=== PATIENT | male | born 1965 | race Caucasian/White ===

== ENCOUNTER → 2018-02-19 10:46 | Outpatient (CLI) | payer OTHER, MEDICARE, SELFPAY ==
[2018-02-19 13:31] LABS: Vitamin B12 330 pg/mL (239-931)
[2018-02-19 14:20] LABS: Vitamin D 25 Hydroxy (D3) 31.2 ng/mL (30.0-100.0)
== END ==
PROVIDERS: PCP Physician Assistant; Visit Provider Physician Assistant
DX: E53.8 Deficiency of other specified B group vitamins (principal); E55.9 Vitamin D deficiency, unspecified; K94.19 Other complications of enterostomy; M85.89 Other specified disorders of bone density and structure, multiple sites; Z87.19 Personal history of other diseases of the digestive system
CPT/HCPCS: 36415; 82306; 82607

== ENCOUNTER → 2018-10-21 11:40 | Outpatient (CLI) | payer OTHER, MEDICARE, SELFPAY ==
[2018-10-21 12:11] LABS: Add Manual Diff / Slide Review NO; Basophils Absolute Auto 100 /uL (0-100); Basophils Percent Auto 1.3 % (0-2); Eosinophils Absolute Auto 600 /uL (0-450); Eosinophils Percent Auto 10.2 % (2-4); Hematocrit 44.9 % (41-53); Lymphocytes Absolute Auto 1300 /uL (1100-4500); Lymphocytes Percent Auto 23.3 % (25-40); Mean Corpuscular HGB Conc 33.4 % (30-36); Mean Corpuscular Hemoglobin 32.3 PG (26-34); Mean Corpuscular Volume 96.6 fL (80-100); Monocytes Absolute Auto 600 /uL (0-900); Monocytes Percent Auto 11.1 % (3-14); Neutrophils Absolute Auto 3000 /uL (1500-7000); Neutrophils Percent Auto 54.1 % (50-75); Platelet Count 228 X10^3/uL (150-400); Red Blood Cell Count 4.64 X10^6/uL (4.5-5.9); White Blood Cell Count 5.6 X10^3/uL (4.5-11.0)
[2018-10-21 12:44] LABS: Alanine Aminotransferase 33 IU/L (21-72); Albumin 4.2 g/dL (3.5-5.0); Albumin Globulin Ratio 1.3 (1.0-2.8); Alkaline Phosphatase 67 U/L (38-126); Aspartate Aminotransferase 34 IU/L (17-59); BUN Creatinine Ratio 13.6 (6-22); Bilirubin Total 3.4 mg/dL (0.2-1.3); Blood Urea Nitrogen 15 mg/dL (9-20); Calcium 9.4 mg/dL (8.4-10.2); Carbon Dioxide 28 mmol/L (22-32); Chloride 105 mmol/L (98-107); Cholesterol 162 mg/dL (140-199); Estimated Glomerular Filt Rate > 60.0 mL/min (>60); Globulin 3.2 g/dL (1.7-4.1); Glucose 89 mg/dL (70-100); HDL Cholesterol 60 mg/dL (40-60); HEMOLYSIS < 15 (0-50); LDL Cholesterol Calculated 85 mg/dL (<100); Potassium 3.9 mmol/L (3.4-5.1); Sodium 141 mmol/L (137-145); Total Protein 7.4 g/dL (6.3-8.2); Triglycerides 86 mg/dL (35-150)
[2018-10-21 13:12] LABS: Prostate Specific Antigen Scrn 0.595 ng/mL (0.1-4.0)
[2018-10-21 13:30] LABS: Vitamin B12 262 pg/mL (239-931)
[2018-10-21 14:16] LABS: Thyroid Stimulating Hormone 1.37 uIU/mL (0.47-4.68)
== END ==
PROVIDERS: PCP Physician Assistant; Visit Provider Physician Assistant
DX: E53.8 Deficiency of other specified B group vitamins (principal); E55.9 Vitamin D deficiency, unspecified; K94.19 Other complications of enterostomy; M85.89 Other specified disorders of bone density and structure, multiple sites; R63.4 Abnormal weight loss; Z13.220 Encounter for screening for lipoid disorders; Z13.6 Encounter for screening for cardiovascular disorders; Z87.19 Personal history of other diseases of the digestive system; Z12.5 Encounter for screening for malignant neoplasm of prostate
CPT/HCPCS: 36415; 80053; 80061; 82306; 82607; 84443; 85025; G0103

== ENCOUNTER 2018-10-29 09:45 | Outpatient (RCR) | payer OTHER, MEDICARE, SELFPAY ==
--- NOTE | 2018-09-30 17:36 | PT.OIE ---
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) Ulcerative colitis (Chronic 1982) Actinic keratosis (Resolved ~04/2017) Colorectal cancer (Resolved 2011) Kidney stones (Resolved 2007) Past Surgical History (Last Reviewed 08/15/18 @ 11:40 by Shiloh Mills MD) History of partial colectomy (Resolved 1997) History of resection of small bowel (Resolved 11/2014) Hx of hernia repair (Resolved 03/2013) Hx of total colectomy (Resolved 09/2011) SBO (small bowel obstruction) (Resolved 10/2011) Provider Visit Care Team Role Provider Type Zeynep Yadav PA-C Primary Care Provider Advanced Contracting Analyst Specialty: Medical Address: [address] [place] [address], [id number] Email: [email or web address] Shiloh Mills MD Attending Provider Physician Specialty: Internal Medicine Address: [address] [place] [address], [id number] Email: Physical Therapy Initial Evaluation PT-OP-A Visit Information Start: 09/30/18 16:57 Freq: Status: Active Protocol: Document 09/30/18 14:30 DCW (Rec: 09/30/18 17:34 [facility] [id number]) Out-Patient Physical Therapy Visit Information Visit Information Visit Type Initial Evaluation Visit Start Time 14:30 Visit Stop Time 15:15 Total Visit Minutes 45 Visit Number 1 Number of MOVIE MACHINE OPERATOR Visits 0 Evaluation Information Evaluation Date 09/30/18 PT-OP-B Current Condition Start: 09/30/18 16:57 Freq: Status: Active Protocol: Document 09/30/18 14:30 DCW (Rec: 09/30/18 17:34 [facility] [id number]) Current Condition History of Current Condition Onset Date 6 weeks Current Complaints Low back pain/stiffness History of Current Condition Pt is a 52 year-old male presenting 6 weeks s/p episode of severe low back pain and spasm. Pt reports that 5 years ago, he underwent a similar episode of lumbar pain, and an MRI revealed 3 slipped discs. At that time, pt had injections and a large dose on NSAIDs, which eventually helped calm things down. Pt reports that over the past ~ two months, he began having some slight increase in low back pain again, and then suddenly 6 weeks ago, had another episode of 10/10 pain, which was so bad pt had to crawl on the floor to get himself to the bathroom. Pt again has taken NSAIDs, which helped him get over the worst of the pain, and reports he now averages about a 3/10, with bad days only being a 4 /10. Pt would now like to focus on learning how to stretch and strengthen himself to limit the possibility of another episode occurring again. Complicating pt's recovery course, however, is a prolapsed Ileostomy. Pt reports that the first time his back pain occurred five years ago, he went to Physical Therapy, and during his first session, was trying to work on core strengthening, and woke up the next day with his prolapsed Ileostomy. Pt notes he never returned to that physical therapy clinic, and he has now undergone two seperate surgeries in an attempt to fix the prolapse, unfortunately both times, the prolapse returned after ~6 weeks. Due to this, pt is very limited in his core and back mobility, and is hesitant to do any strong abdominal contraction. Prior Treatments and Tests MRI: Per pt, MRI in 2013 showed 3 slipped lumbar discs Ileostomy, and then two attempted surgical repairs of an Ileostomy prolapse Treatment Goals Patient/Caregiver Goals Pt's goal is to avoid getting another episode of severe back pain. Prior Functional Status Baseline Function- ADL's Independent Baseline Function- Mobility Independent Current Functional Impairments (Reported) Functional Limitations- Other Pt function now is back to his normal, which he admits isn' t really very much. Pt notes he does not do any strenuous activity Personal Factors Other Personal Factors That May Effect Crohn's disease s/p Ileostomy Therapy/Recovery (prolapsed), Depression, Osteopenia, Asthma PT-OP-C Subjective Start: 09/30/18 16:57 Freq: Status: Active Protocol: Document 09/30/18 14:30 DCW (Rec: 09/30/18 17:34 DCW [id number]) OP-PT Subjective Patient Comments Patient Comments I have very strict limits on what I'm allowed to lift and how I can move my core because of my ileostomy. Patient Reported Progress Improving Patient Questionnaires Oswestry Low Back Index Oswestry Score 45/50 = 90% Oswestry Impairment 80 to 99% Impaired (Score 80- 99) Other Questionnaire Name and Score Pt reports he filled out his Oswestry questionnaire based on how he felt during his severe episode, not his current function OP-PT Pain Assessment Pain Assessment Grid Paper Pain Assessment Grid Completed Yes Location Lower Back Intensity 9 Scale Used Numeric (1 - 10) Description Sharp Shooting Spasm Stabbing Throbbing Comments Pain Comments Pt reports he filled out his pain assessment grid based on how he felt during his severe episode, not his current level of pain PT-OP-F Manual Assessment Start: 09/30/18 16:57 Freq: Status: Active Protocol: Document 09/30/18 14:30 DCW (Rec: 09/30/18 17:34 DCW [id number]) Manual Assessments Soft Tissue Assessment Soft Tissue Mobility Assessment Left QL: Moderate-severe tone and tenderness 2/4: pain with wincing along left PT-OP-J Posture/Palpation/Skin Start: 09/30/18 16:57 Freq: Status: Active Protocol: Document 09/30/18 14:30 DCW (Rec: 09/30/18 17:34 DCW [id number]) Palpation Assessment Location QL Palpation Location Left QL Palpation Findings Spasm Muscle Guarding Tenderness PT-OP-K Range of Motion Start: 09/30/18 17:34 Freq: Status: Active Protocol: Document 09/30/18 14:30 DCW (Rec: 09/30/18 17:36 DCW [id number]) Lumbar Spine Range of Motion Lumbar Spine Active Degrees Comments Pt very limited in lumbar ROM secondary to Ileostomy. Pt performs all bending down with his hips and legs, keeping his spine completely straight. PT-OP-L Special Tests Start: 09/30/18 16:57 Freq: Status: Active Protocol: Document 09/30/18 14:30 DCW (Rec: 09/30/18 17:34 DCW [id number]) Special Tests Lumbar Spine Special Tests Compression Test Results Negative Slump Test Results Negative CONSTANCE Test Results Negative Straight Leg Raise Test Results HS tightness at 40? Comments PROM only, AROM not performed Standing Flexion Test Results Unable to perform 2? to Ileostomy Manual Traction Test Results Improved pain PT-OP-M Strength Start: 09/30/18 16:57 Freq: Status: Active Protocol: Document 09/30/18 14:30 DCW (Rec: 09/30/18 17:34 DCW [id number]) Trunk Strength Trunk Manual Muscle Testing Testing Position Supine Core Stabilization Pt able to contract TrA gently , not tested further to prevent increased internal pressure due to Ileostomy prolapse PT-OP-Q Treatments Start: 09/30/18 16:57 Freq: Status: Active Protocol: Document 09/30/18 14:30 DCW (Rec: 09/30/18 17:34 DCW [id number]) Therapeutic Exercises Supine Exercises PPT /c core contraction Supine Exercise Name PPT /c gentle core contraction Sitting Exercises Seated Marching Sitting Exercise Name Seated Marching /c gentle core contraction Side bilateral Seated lumbar flexion Sitting Exercise Name Lumbar fwd flexion Lateral trunk flexion Sitting Exercise Name Lateral trunk flexion Side left Comments focus on L QL stretch PT-OP-T Assessment and Plan Start: 09/30/18 16:57 Freq: Status: Active Protocol: Document 09/30/18 14:30 DCW (Rec: 09/30/18 17:34 DCW [id number]) Physical Therapy Assessment Rehab Potential Rehabilitation Potential Good Evaluation Complexity Number of Personal Factors/Comorbidities 1-2 Number of Body Systems Impaired 3 Clinical Presentation at Evaluation Unstable Impairments Impairments Pain ROM Soft Tissue Mobility Strength Tone Goals Three Impairment Pt unable to perform proper core contraction d/t Ileostomy prolapse Short Term Goal (STG) Pt to demonstrate understanding of ability to gently contract core and brace low back without increasing internal core pressure and worsening prolapse STG Duration 10/31/18 Two Impairment L QL spasm causes low back pain and stiffness Short Term Goal (STG) Pt to report pain >3/10 over two week span STG Duration 10/31/18 Director Peoplesoft Goal (LTG) Pt QL to mild tone with tenderness to palpation 03/29: Complaint of pain LTG Duration 12/01/18 One Impairment Pt does not have an appropriate home exercise program Short Term Goal (STG) Pt to be independent and compliant with an appropriate HEP STG Duration 10/31/18 Assessment Summary Assessment Pt presents with a history of occasional severe low back pain, secondary to likely disc herniation, muscle tone, and decreased core strength. Pt is unable to properly contract his core musculature due to his previous history of a prolapsed Ileostomy, for which surgical repair has failed twice. Ileostomy prevents pt from engaging his core, attempting to flex or extend his lumbar spine, or perform any high-level physical activity. These limitations will obviously influence pt's ability to participate in parts of a normal PT plan for lumbar dysfunction, however pt should benefit from manual traction, STM, pain-control modalities, and gentle core strengthening and stability. Physical Therapy Plan Frequency and Duration Frequency of Treatment 2x/Week Duration of Treatment 10 weeks Plan of Care Start Date 09/30/18 Plan of Care End Date 12/09/18 Therapeutic Interventions Therapeutic Interventions Home Exercise Program Joint Mobilizations Manual Therapy Patient/Caregiver Education Self-Care/Home Management Soft Tissue Mobilization Therapeutic Activities Therapeutic Exercises Modalities Cold Pack/Ice Massage Electric Stimulation Hot Packs Ultrasound Next Visit Focus/Plan Next Note Type Treatment Note Next Visit Plan Lumbar STM, gentle core strengthening, Manual traction
--- NOTE | 2018-09-30 17:36 | PT.OPPOC ---
Current Diagnoses Low back pain (09/30/18) Provider Visit Care Team Role Provider Type Zeynep Yadav PA-C Primary Care Provider Advanced Crewman Main Battle Tank Specialty: Medical Address: [address] [place] [address], [address] Email: [email or web address] Shiloh Mills MD Attending Provider Physician Specialty: Internal Medicine Address: [address] [place] [address], [address] Email: Plan Of Care PT-OP-T Assessment and Plan Start: 09/30/18 16:57 Freq: Status: Active Protocol: Document 09/30/18 14:30 DCW (Rec: 09/30/18 17:34 DCW [id number]) Physical Therapy Assessment Rehab Potential Rehabilitation Potential Good Evaluation Complexity Number of Personal Factors/Comorbidities 1-2 Number of Body Systems Impaired 3 Clinical Presentation at Evaluation Unstable Impairments Impairments Pain ROM Soft Tissue Mobility Strength Tone Goals Three Impairment Pt unable to perform proper core contraction d/t Ileostomy prolapse Short Term Goal (STG) Pt to demonstrate understanding of ability to gently contract core and brace low back without increasing internal core pressure and worsening prolapse STG Duration 10/31/18 Two Impairment L QL spasm causes low back pain and stiffness Short Term Goal (STG) Pt to report pain >3/10 over two week span STG Duration 10/31/18 Retail Service Specialist Goal (LTG) Pt QL to mild tone with tenderness to palpation 1/4: Complaint of pain LTG Duration 12/01/18 One Impairment Pt does not have an appropriate home exercise program Short Term Goal (STG) Pt to be independent and compliant with an appropriate HEP STG Duration 10/31/18 Assessment Summary Assessment Pt presents with a history of occasional severe low back pain, secondary to likely disc herniation, muscle tone, and decreased core strength. Pt is unable to properly contract his core musculature due to his previous history of a prolapsed Ileostomy, for which surgical repair has failed twice. Ileostomy prevents pt from engaging his core, attempting to flex or extend his lumbar spine, or perform any high-level physical activity. These limitations will obviously influence pt's ability to participate in parts of a normal PT plan for lumbar dysfunction, however pt should benefit from manual traction, STM, pain-control modalities, and gentle core strengthening and stability. Physical Therapy Plan Frequency and Duration Frequency of Treatment 2x/Week Duration of Treatment 10 weeks Plan of Care Start Date 09/30/18 Plan of Care End Date 12/09/18 Therapeutic Interventions Therapeutic Interventions Home Exercise Program Joint Mobilizations Manual Therapy Patient/Caregiver Education Self-Care/Home Management Soft Tissue Mobilization Therapeutic Activities Therapeutic Exercises Modalities Cold Pack/Ice Massage Electric Stimulation Hot Packs Ultrasound Next Visit Focus/Plan Next Note Type Treatment Note Next Visit Plan Lumbar STM, gentle core strengthening, Manual traction Plan of Care Dates Plan of Care Start Date 09/30/18 Plan of Care End Date 12/09/18 Please Sign and Return: I have reviewed this Plan of Care and certify that the skilled therapy services above are required to meet the patient?s needs. Physician Signature Date Printed Name and Credentials Clinical Instructor Signature Printed Name and Credentials
--- NOTE | 2018-10-03 15:13 | PT.OTN ---
Current Diagnoses Low back pain (10/03/18) Physical Therapy Treatment Note PT-OP-A Visit Information Start: 09/30/18 16:57 Freq: Status: Active Protocol: Document 10/03/18 14:30 DCW (Rec: 10/03/18 15:13 DCW [id number]) Out-Patient Physical Therapy Visit Information Visit Information Visit Type Treatment Note Visit Start Time 14:30 Visit Stop Time 15:15 Total Visit Minutes 45 Visit Number 2 Number of BODY PRESSER Visits 0 Evaluation Information Evaluation Date 09/30/18 PT-OP-B Current Condition Start: 09/30/18 16:57 Freq: Status: Active Protocol: Document 09/30/18 14:30 DCW (Rec: 09/30/18 17:34 DCW [id number]) Current Condition History of Current Condition Onset Date 6 weeks Current Complaints Low back pain/stiffness History of Current Condition Pt is a 52 year-old male presenting 6 weeks s/p episode of severe low back pain and spasm. Pt reports that 5 years ago, he underwent a similar episode of lumbar pain, and an MRI revealed 3 slipped discs. At that time, pt had injections and a large dose on NSAIDs, which eventually helped calm things down. Pt reports that over the past ~ two months, he began having some slight increase in low back pain again, and then suddenly 6 weeks ago, had another episode of 10/10 pain, which was so bad pt had to crawl on the floor to get himself to the bathroom. Pt again has taken NSAIDs, which helped him get over the worst of the pain, and reports he now averages about a 3/10, with bad days only being a 4 /10. Pt would now like to focus on learning how to stretch and strengthen himself to limit the possibility of another episode occurring again. Complicating pt's recovery course, however, is a prolapsed Ileostomy. Pt reports that the first time his back pain occurred five years ago, he went to Physical Therapy, and during his first session, was trying to work on core strengthening, and woke up the next day with his prolapsed Ileostomy. Pt notes he never returned to that physical therapy clinic, and he has now undergone two seperate surgeries in an attempt to fix the prolapse, unfortunately both times, the prolapse returned after ~6 weeks. Due to this, pt is very limited in his core and back mobility, and is hesitant to do any strong abdominal contraction. Prior Treatments and Tests MRI: Per pt, MRI in 2013 showed 3 slipped lumbar discs Ileostomy, and then two attempted surgical repairs of an Ileostomy prolapse Treatment Goals Patient/Caregiver Goals Pt's goal is to avoid getting another episode of severe back pain. Prior Functional Status Baseline Function- ADL's Independent Baseline Function- Mobility Independent Current Functional Impairments (Reported) Functional Limitations- Other Pt function now is back to his normal, which he admits isn' t really very much. Pt notes he does not do any strenuous activity Personal Factors Other Personal Factors That May Effect Crohn's disease s/p Ileostomy Therapy/Recovery (prolapsed), Depression, Osteopenia, Asthma PT-OP-C Subjective Start: 09/30/18 16:57 Freq: Status: Active Protocol: Document 10/03/18 14:30 DCW (Rec: 10/03/18 15:13 DCW [id number]) OP-PT Subjective Patient Comments Patient Comments I felt pretty good after last time. Nothing was too hard. I 'm having trouble remembering my exercises, though. PT-OP-F Manual Assessment Start: 09/30/18 16:57 Freq: Status: Active Protocol: Document 09/30/18 14:30 DCW (Rec: 09/30/18 17:34 DCW [id number]) Manual Assessments Soft Tissue Assessment Soft Tissue Mobility Assessment Left QL: Moderate-severe tone and tenderness 2/4: pain with wincing along left PT-OP-J Posture/Palpation/Skin Start: 09/30/18 16:57 Freq: Status: Active Protocol: Document 09/30/18 14:30 DCW (Rec: 09/30/18 17:34 DCW [id number]) Palpation Assessment Location QL Palpation Location Left QL Palpation Findings Spasm Muscle Guarding Tenderness PT-OP-K Range of Motion Start: 09/30/18 17:34 Freq: Status: Active Protocol: Document 09/30/18 14:30 DCW (Rec: 09/30/18 17:36 DCW [id number]) Lumbar Spine Range of Motion Lumbar Spine Active Degrees Comments Pt very limited in lumbar ROM secondary to Ileostomy. Pt performs all bending down with his hips and legs, keeping his spine completely straight. PT-OP-L Special Tests Start: 09/30/18 16:57 Freq: Status: Active Protocol: Document 09/30/18 14:30 DCW (Rec: 09/30/18 17:34 DCW [id number]) Special Tests Lumbar Spine Special Tests Compression Test Results Negative Slump Test Results Negative CONSTANCE Test Results Negative Straight Leg Raise Test Results HS tightness at 40? Comments PROM only, AROM not performed Standing Flexion Test Results Unable to perform 2? to Ileostomy Manual Traction Test Results Improved pain PT-OP-M Strength Start: 09/30/18 16:57 Freq: Status: Active Protocol: Document 09/30/18 14:30 DCW (Rec: 09/30/18 17:34 DCW [id number]) Trunk Strength Trunk Manual Muscle Testing Testing Position Supine Core Stabilization Pt able to contract TrA gently , not tested further to prevent increased internal pressure due to Ileostomy prolapse PT-OP-Q Treatments Start: 09/30/18 16:57 Freq: Status: Active Protocol: Document 10/03/18 14:30 DCW (Rec: 10/03/18 15:13 DCW [id number]) Gym Equipment Therapeutic Ball Trunk Rotation Exercise Details Trunk Rotation vs T-band resistance Ball Size/Color Green - 65 cm Lv 1 T-band Body Position Sitting Hip/knee flexion vs T-band resistance Exercise Details Hip/knee flexion vs T-band resistance - feet on T-ball Ball Size/Color Red - 55 cm Lv 3 T-band Body Position Supine Lower Trunk Rotation Exercise Details Trunk Rotation, legs on T-ball Ball Size/Color Red - 55 cm Body Position Supine Therapeutic Exercises Supine Exercises PPT /c SLR Supine Exercise Name PPT /c alternating SLR PPT /c Marching Supine Exercise Name PPT /c Marching Manual Therapy Treatment Soft Tissue Mobilization Paraspinals Body Location L Paraspinals Mobilization Type Strumming Sustained Pressure Intensity/Depth Moderate Body Position Sidelying QL Body Location L QL Mobilization Type Strumming Sustained Pressure Intensity/Depth Moderate Body Position Sidelying Manual Traction Lumbar Details Short-axis on B LEs /c strap Body Position Hooklying PT-OP-T Assessment and Plan Start: 09/30/18 16:57 Freq: Status: Active Protocol: Document 10/03/18 14:30 DCW (Rec: 10/03/18 15:13 DCW [id number]) Physical Therapy Assessment Impairments Impairments Pain ROM Soft Tissue Mobility Strength Tone Goals Three Impairment Pt unable to perform proper core contraction d/t Ileostomy prolapse Short Term Goal (STG) Pt to demonstrate understanding of ability to gently contract core and brace low back without increasing internal core pressure and worsening prolapse STG Duration 10/31/18 Two Impairment L QL spasm causes low back pain and stiffness Short Term Goal (STG) Pt to report pain >3/10 over two week span STG Duration 10/31/18 Marketing Programs Specialist Goal (LTG) Pt QL to mild tone with tenderness to palpation 03/29: Complaint of pain LTG Duration 12/01/18 One Impairment Pt does not have an appropriate home exercise program Short Term Goal (STG) Pt to be independent and compliant with an appropriate HEP STG Duration 10/31/18 Assessment Summary Assessment Pt felt great relief with STM and manual traction, and tolerated TherEx very well with no complaints of too much abdominal stress on his Ileostomy. Physical Therapy Plan Frequency and Duration Frequency of Treatment 2x/Week Duration of Treatment 10 weeks Plan of Care Start Date 09/30/18 Plan of Care End Date 12/09/18 Therapeutic Interventions Therapeutic Interventions Home Exercise Program Joint Mobilizations Manual Therapy Patient/Caregiver Education Self-Care/Home Management Soft Tissue Mobilization Therapeutic Activities Therapeutic Exercises Modalities Cold Pack/Ice Massage Electric Stimulation Hot Packs Ultrasound Next Visit Focus/Plan Next Note Type Treatment Note Next Visit Plan Lumbar STM, gentle core strengthening, Manual traction
--- NOTE | 2018-10-29 10:40 | PT.OTN ---
Current Diagnoses Low back pain (10/29/18) Physical Therapy Treatment Note PT-OP-A Visit Information Start: 09/30/18 16:57 Freq: Status: Active Protocol: Document 10/29/18 09:55 DCW (Rec: 10/29/18 10:40 DCW [id number]) Out-Patient Physical Therapy Visit Information Visit Information Visit Type Treatment Note Visit Start Time 09:55 Visit Stop Time 10:30 Total Visit Minutes 35 Visit Number 3 Number of SLAGGER Visits 0 Evaluation Information Evaluation Date 09/30/18 PT-OP-B Current Condition Start: 09/30/18 16:57 Freq: Status: Active Protocol: Document 09/30/18 14:30 DCW (Rec: 09/30/18 17:34 DCW [id number]) Current Condition History of Current Condition Onset Date 6 weeks Current Complaints Low back pain/stiffness History of Current Condition Pt is a 52 year-old male presenting 6 weeks s/p episode of severe low back pain and spasm. Pt reports that 5 years ago, he underwent a similar episode of lumbar pain, and an MRI revealed 3 slipped discs. At that time, pt had injections and a large dose on NSAIDs, which eventually helped calm things down. Pt reports that over the past ~ two months, he began having some slight increase in low back pain again, and then suddenly 6 weeks ago, had another episode of 10/10 pain, which was so bad pt had to crawl on the floor to get himself to the bathroom. Pt again has taken NSAIDs, which helped him get over the worst of the pain, and reports he now averages about a 3/10, with bad days only being a 4 /10. Pt would now like to focus on learning how to stretch and strengthen himself to limit the possibility of another episode occurring again. Complicating pt's recovery course, however, is a prolapsed Ileostomy. Pt reports that the first time his back pain occurred five years ago, he went to Physical Therapy, and during his first session, was trying to work on core strengthening, and woke up the next day with his prolapsed Ileostomy. Pt notes he never returned to that physical therapy clinic, and he has now undergone two seperate surgeries in an attempt to fix the prolapse, unfortunately both times, the prolapse returned after ~6 weeks. Due to this, pt is very limited in his core and back mobility, and is hesitant to do any strong abdominal contraction. Prior Treatments and Tests MRI: Per pt, MRI in 2013 showed 3 slipped lumbar discs Ileostomy, and then two attempted surgical repairs of an Ileostomy prolapse Treatment Goals Patient/Caregiver Goals Pt's goal is to avoid getting another episode of severe back pain. Prior Functional Status Baseline Function- ADL's Independent Baseline Function- Mobility Independent Current Functional Impairments (Reported) Functional Limitations- Other Pt function now is back to his normal, which he admits isn' t really very much. Pt notes he does not do any strenuous activity Personal Factors Other Personal Factors That May Effect Crohn's disease s/p Ileostomy Therapy/Recovery (prolapsed), Depression, Osteopenia, Asthma PT-OP-C Subjective Start: 09/30/18 16:57 Freq: Status: Active Protocol: Document 10/29/18 09:55 DCW (Rec: 10/29/18 10:40 DCW [id number]) OP-PT Subjective Patient Comments Patient Comments Last time we did some resistance training, and we just can't do that again. I was in so much pain, and it really messes up my stoma. PT-OP-F Manual Assessment Start: 09/30/18 16:57 Freq: Status: Active Protocol: Document 09/30/18 14:30 DCW (Rec: 09/30/18 17:34 DCW [id number]) Manual Assessments Soft Tissue Assessment Soft Tissue Mobility Assessment Left QL: Moderate-severe tone and tenderness 2/4: pain with wincing along left PT-OP-J Posture/Palpation/Skin Start: 09/30/18 16:57 Freq: Status: Active Protocol: Document 09/30/18 14:30 DCW (Rec: 09/30/18 17:34 DCW [id number]) Palpation Assessment Location QL Palpation Location Left QL Palpation Findings Spasm Muscle Guarding Tenderness PT-OP-K Range of Motion Start: 09/30/18 17:34 Freq: Status: Active Protocol: Document 09/30/18 14:30 DCW (Rec: 09/30/18 17:36 DCW [id number]) Lumbar Spine Range of Motion Lumbar Spine Active Degrees Comments Pt very limited in lumbar ROM secondary to Ileostomy. Pt performs all bending down with his hips and legs, keeping his spine completely straight. PT-OP-L Special Tests Start: 09/30/18 16:57 Freq: Status: Active Protocol: Document 09/30/18 14:30 DCW (Rec: 09/30/18 17:34 DCW [id number]) Special Tests Lumbar Spine Special Tests Compression Test Results Negative Slump Test Results Negative CONSTANCE Test Results Negative Straight Leg Raise Test Results HS tightness at 40? Comments PROM only, AROM not performed Standing Flexion Test Results Unable to perform 2? to Ileostomy Manual Traction Test Results Improved pain PT-OP-M Strength Start: 09/30/18 16:57 Freq: Status: Active Protocol: Document 09/30/18 14:30 DCW (Rec: 09/30/18 17:34 DCW [id number]) Trunk Strength Trunk Manual Muscle Testing Testing Position Supine Core Stabilization Pt able to contract TrA gently , not tested further to prevent increased internal pressure due to Ileostomy prolapse PT-OP-Q Treatments Start: 09/30/18 16:57 Freq: Status: Active Protocol: Document 10/29/18 09:55 DCW (Rec: 10/29/18 10:40 DCW [id number]) Manual Therapy Treatment Soft Tissue Mobilization Paraspinals Body Location L Paraspinals Mobilization Type Strumming Sustained Pressure Intensity/Depth Moderate Body Position Sidelying QL Body Location L QL Mobilization Type Strumming Sustained Pressure Intensity/Depth Moderate Body Position Sidelying Manual Traction Lumbar Details Short-axis on B LEs /c strap Body Position Hooklying PT-OP-T Assessment and Plan Start: 09/30/18 16:57 Freq: Status: Active Protocol: Document 10/29/18 09:55 DCW (Rec: 10/29/18 10:40 DCW [id number]) Physical Therapy Assessment Impairments Impairments Pain ROM Soft Tissue Mobility Strength Tone Goals Three Impairment Pt unable to perform proper core contraction d/t Ileostomy prolapse Short Term Goal (STG) Pt to demonstrate understanding of ability to gently contract core and brace low back without increasing internal core pressure and worsening prolapse STG Duration 10/31/18 Two Impairment L QL spasm causes low back pain and stiffness Short Term Goal (STG) Pt to report pain >3/10 over two week span STG Duration 10/31/18 Logging Crew Foreman Goal (LTG) Pt QL to mild tone with tenderness to palpation 03/29: Complaint of pain LTG Duration 12/01/18 One Impairment Pt does not have an appropriate home exercise program Short Term Goal (STG) Pt to be independent and compliant with an appropriate HEP STG Duration 10/31/18 Assessment Summary Assessment Focused on manual therapy today due to pt's request to avoid any resistance exercises . Physical Therapy Plan Frequency and Duration Frequency of Treatment 2x/Week Duration of Treatment 10 weeks Plan of Care Start Date 09/30/18 Plan of Care End Date 12/09/18 Therapeutic Interventions Therapeutic Interventions Home Exercise Program Joint Mobilizations Manual Therapy Patient/Caregiver Education Self-Care/Home Management Soft Tissue Mobilization Therapeutic Activities Therapeutic Exercises Modalities Cold Pack/Ice Massage Electric Stimulation Hot Packs Ultrasound Next Visit Focus/Plan Next Note Type Treatment Note Next Visit Plan Lumbar STM, gentle core strengthening, Manual traction
--- NOTE | 2018-11-05 09:54 | PT-OP ANOTE ---
Pt arrived for his appointment today 11/05/18, but reported he had a kidney stone which was causing him significant pain, and he wanted to cancel, but knew that he did not call before the 24-hour cancellation window, so he didn't want to cause any trouble. Pt was convinced that it wasn't a big issue, as he was clearly in substantial pain, and would probably not tolerate much anyway. Pt also admitted that his back has been feeling much better, and he feels like he is appropriate for discharge at this time.
--- NOTE | 2018-11-05 10:00 | PT.OPDS ---
Current Diagnoses Low back pain (10/29/18) Provider Visit Care Team Role Provider Type Zeynep Yadav PA-C Primary Care Provider Advanced Hotel Attendant Specialty: Medical Address: [address] [place] [address], [id number] Email: [email or web address] Shiloh Mills MD Attending Provider Physician Specialty: Internal Medicine Address: [address] [place] [address], [id number] Email: Visit Number Visit Number 3 Discharge Summary PT-OP-B Current Condition Start: 09/30/18 16:57 Freq: Status: Active Protocol: Document 09/30/18 14:30 DCW (Rec: 09/30/18 17:34 DCW [id number]) Current Condition History of Current Condition Onset Date 6 weeks Current Complaints Low back pain/stiffness History of Current Condition Pt is a 52 year-old male presenting 6 weeks s/p episode of severe low back pain and spasm. Pt reports that 5 years ago, he underwent a similar episode of lumbar pain, and an MRI revealed 3 slipped discs. At that time, pt had injections and a large dose on NSAIDs, which eventually helped calm things down. Pt reports that over the past ~ two months, he began having some slight increase in low back pain again, and then suddenly 6 weeks ago, had another episode of 10/10 pain, which was so bad pt had to crawl on the floor to get himself to the bathroom. Pt again has taken NSAIDs, which helped him get over the worst of the pain, and reports he now averages about a 3/10, with bad days only being a 4 /10. Pt would now like to focus on learning how to stretch and strengthen himself to limit the possibility of another episode occurring again. Complicating pt's recovery course, however, is a prolapsed Ileostomy. Pt reports that the first time his back pain occurred five years ago, he went to Physical Therapy, and during his first session, was trying to work on core strengthening, and woke up the next day with his prolapsed Ileostomy. Pt notes he never returned to that physical therapy clinic, and he has now undergone two seperate surgeries in an attempt to fix the prolapse, unfortunately both times, the prolapse returned after ~6 weeks. Due to this, pt is very limited in his core and back mobility, and is hesitant to do any strong abdominal contraction. Prior Treatments and Tests MRI: Per pt, MRI in 2013 showed 3 slipped lumbar discs Ileostomy, and then two attempted surgical repairs of an Ileostomy prolapse Treatment Goals Patient/Caregiver Goals Pt's goal is to avoid getting another episode of severe back pain. Prior Functional Status Baseline Function- ADL's Independent Baseline Function- Mobility Independent Current Functional Impairments (Reported) Functional Limitations- Other Pt function now is back to his normal, which he admits isn' t really very much. Pt notes he does not do any strenuous activity Personal Factors Other Personal Factors That May Effect Crohn's disease s/p Ileostomy Therapy/Recovery (prolapsed), Depression, Osteopenia, Asthma PT-OP-C Subjective Start: 09/30/18 16:57 Freq: Status: Active Protocol: Document 10/29/18 09:55 DCW (Rec: 10/29/18 10:40 DCW [id number]) OP-PT Subjective Patient Comments Patient Comments Last time we did some resistance training, and we just can't do that again. I was in so much pain, and it really messes up my stoma. PT-OP-F Manual Assessment Start: 09/30/18 16:57 Freq: Status: Active Protocol: Document 09/30/18 14:30 DCW (Rec: 09/30/18 17:34 DCW [id number]) Manual Assessments Soft Tissue Assessment Soft Tissue Mobility Assessment Left QL: Moderate-severe tone and tenderness 2/4: pain with wincing along left PT-OP-J Posture/Palpation/Skin Start: 09/30/18 16:57 Freq: Status: Active Protocol: Document 09/30/18 14:30 DCW (Rec: 09/30/18 17:34 DCW [id number]) Palpation Assessment Location QL Palpation Location Left QL Palpation Findings Spasm Muscle Guarding Tenderness PT-OP-K Range of Motion Start: 09/30/18 17:34 Freq: Status: Active Protocol: Document 09/30/18 14:30 DCW (Rec: 09/30/18 17:36 DCW [id number]) Lumbar Spine Range of Motion Lumbar Spine Active Degrees Comments Pt very limited in lumbar ROM secondary to Ileostomy. Pt performs all bending down with his hips and legs, keeping his spine completely straight. PT-OP-L Special Tests Start: 09/30/18 16:57 Freq: Status: Active Protocol: Document 09/30/18 14:30 DCW (Rec: 09/30/18 17:34 DCW [id number]) Special Tests Lumbar Spine Special Tests Compression Test Results Negative Slump Test Results Negative CONSTANCE Test Results Negative Straight Leg Raise Test Results HS tightness at 40? Comments PROM only, AROM not performed Standing Flexion Test Results Unable to perform 2? to Ileostomy Manual Traction Test Results Improved pain PT-OP-M Strength Start: 09/30/18 16:57 Freq: Status: Active Protocol: Document 09/30/18 14:30 DCW (Rec: 09/30/18 17:34 DCW [id number]) Trunk Strength Trunk Manual Muscle Testing Testing Position Supine Core Stabilization Pt able to contract TrA gently , not tested further to prevent increased internal pressure due to Ileostomy prolapse PT-OP-T Assessment and Plan Start: 09/30/18 16:57 Freq: Status: Active Protocol: Document 11/05/18 09:58 DCW (Rec: 11/05/18 10:00 DCW [id number]) Physical Therapy Assessment Impairments Impairments Pain ROM Soft Tissue Mobility Strength Tone Goals Three Impairment Pt unable to perform proper core contraction d/t Ileostomy prolapse Short Term Goal (STG) Pt to demonstrate understanding of ability to gently contract core and brace low back without increasing internal core pressure and worsening prolapse STG Duration 10/31/18 Two Impairment L QL spasm causes low back pain and stiffness Short Term Goal (STG) Pt to report pain >3/10 over two week span STG Duration Met Snf Goal (LTG) Pt QL to mild tone with tenderness to palpation 03/29: Complaint of pain LTG Duration 12/01/18 One Impairment Pt does not have an appropriate home exercise program Short Term Goal (STG) Pt to be independent and compliant with an appropriate HEP STG Duration Met Assessment Summary Assessment Pt arrived for his appointment 11/05/18, but reported he had a kidney stone which was causing him significant pain, and he wanted to cancel, but knew that he did not call before the 24-hour cancellation window, so he didn't want to cause any trouble. Pt was convinced that it wasn't a big issue, as he was clearly in substantial pain, and would probably not tolerate much anyway. Pt also admitted that his back has been feeling much better, and he feels like he is currently appropriate for discharge. Pt understands that he will need a new referral in order to return to skilled therapy in the future. Pt will be discharged at this time. Physical Therapy Plan Frequency and Duration Frequency of Treatment 2x/Week Duration of Treatment 10 weeks Plan of Care Start Date 09/30/18 Plan of Care End Date 12/09/18 Therapeutic Interventions Therapeutic Interventions Home Exercise Program Joint Mobilizations Manual Therapy Patient/Caregiver Education Self-Care/Home Management Soft Tissue Mobilization Therapeutic Activities Therapeutic Exercises Modalities Cold Pack/Ice Massage Electric Stimulation Hot Packs Ultrasound Discharge Physical Therapy Discharge Reasons Patient Request Next Visit Focus/Plan Next Note Type Discharge Summary
== END 2018-11-06 16:33 | disposition home or self-care (01) ==
LOC: PHYS 09:45
PROVIDERS: PCP Physician Assistant; Visit Provider Hospitalist
DX: M54.5 Low back pain (principal)
CPT/HCPCS: 97110; 97140; 97162

== ENCOUNTER → 2018-11-04 06:42 | Outpatient (CLI) | payer OTHER, MEDICARE, SELFPAY ==
--- NOTE | 2018-11-04 07:11 | DI.CT.S_ITS ---
PROCEDURE: CT ABDOMEN PELVIS WO/W CON INDICATIONS: Painless hematuria; weight loss TECHNIQUE: After the administration of oral contrast, 5 mm thick sections acquired from the diaphragms to the iliac crests. After the administration of intravenous contrast, 5 mm thick sections acquired from the diaphragms to the symphysis. 5 mm thick coronal and sagittal reformats were acquired. For radiation dose reduction, the following was used: automated exposure control, adjustment of mA and/or kV according to patient size. COMPARISON: None. FINDINGS: Image quality: Excellent. ABDOMEN: Lung bases: Lung bases are clear except for slight lung base scarring or atelectasis posteriorly. Heart size is normal. Solid organs: Liver is normal in size and enhancement. Gallbladder appears contracted. Biliary system is non-dilated. Pancreas enhances normally. Spleen is normal in size and enhancement. No adrenal nodules. Both kidneys are normal in size. No hydronephrosis is found, but there is a 2 mm nonobstructive calculus at the mid right kidney and a 3 x 5 mm 502 Hounsfield unit calculus producing [id number] hydronephrosis of the left kidney. There are several renal cortical cysts bilaterally. The largest is exophytic at the mid anterior right kidney measuring up to almost 4 cm. Bowel and peritoneum: Stomach, small and large bowel loops are normal in caliber and wall thickness. No free fluid or air. Nodes and vessels: No retroperitoneal or mesenteric adenopathy by size criteria. Aorta and inferior vena are normal in caliber. Miscellaneous: No ventral hernias. Ostomy site right abdomen/pelvis junction, just above the umbilicus level, without inflammation in this area PELVIS: Genitourinary: Bladder wall thickness is difficult to accurately assess due to absence of bladder distention by urine. The bladder wall may be mildly thickened but more likely the appearance is secondary to bladder contraction at time of imaging. Miscellaneous: No inguinal hernias or adenopathy. Enteric staple line right lower pelvis, without associated inflammation Bones: No suspicious bony lesions. No vertebral body compression fractures. IMPRESSION: Postsurgical changes as discussed, no active Crohn's disease is found. Abscess is not identified. The urinary tract stone is not obstructive at the mid right kidney measuring only approximately 2 mm in diameter. A left-sided proximal ureteral pelvic junction calculus is present, measuring up to 3 x 5 mm, with mild adjacent inflammation in the retroperitoneal fat. Mild to moderate reactive hydronephrosis is noted at the left kidney as a result. The radiodensity of the left renal calculus is 502 Hounsfield units. Dictated by: Handy Stephen M.D. on 11/04/2018 at 10:45 Approved by: Handy Stephen M.D. on 11/04/2018 at 10:53
== END ==
PROVIDERS: PCP Physician Assistant; Visit Provider Physician Assistant
DX: N20.0 Calculus of kidney (principal); N20.2 Calculus of kidney with calculus of ureter; K65.8 Other peritonitis; N13.30 Unspecified hydronephrosis; R31.9 Hematuria, unspecified; R63.4 Abnormal weight loss
CPT/HCPCS: 74178; Q9967

== ENCOUNTER 2020-12-10 10:43 | Emergency (ER) | payer OTHER, MEDICARE, SELFPAY ==
[2020-12-10] VITALS (10 sets, daily range): BP systolic 104–126; BP diastolic 61–76; PULSE 60–78; RESP 15–19; TEMP 36.1; O2SAT 96–100; BMI 23.7
--- NOTE | 2020-12-10 10:58 | PC.NURSE ---
Patient presents with left flank pain, feels very similar to kidney stones in the past. Patient has had to have surgical removal of stones in the past. Nausea and vomiting last night, none today. Patient tried hydrocodone that was as well as old flomax.
[2020-12-10] MEDS: KETOROLAC 30 MG/ML VIAL 15 MG IV (11:11)
[2020-12-10 11:28] LABS: Bacteria Urine None Seen; Culture Indicated Urine Cult Not Indicated; RBC Urine 1-5/HPF (0-5/HPF); WBC Urine 0-1/HPF (0-5/HPF)
[2020-12-10 11:53] LABS: Add Manual Diff / Slide Review NO; Basophils Absolute Auto 100 /uL (0-100); Basophils Percent Auto 0.5 % (0-2); Eosinophils Absolute Auto 200 /uL (0-450); Eosinophils Percent Auto 1.7 % (2-4); Hematocrit 45.4 % (41-53); Hemoglobin 15.1 g/dL (13.5-17.5); Lymphocytes Absolute Auto 1400 /uL (1100-4500); Lymphocytes Percent Auto 10.6 % (25-40); Mean Corpuscular HGB Conc 33.2 % (30-36); Mean Corpuscular Volume 96.4 fL (80-100); Monocytes Absolute Auto 1600 /uL (0-900); Monocytes Percent Auto 12.3 % (3-14); Neutrophils Absolute Auto 9900 /uL (1500-7000); Neutrophils Percent Auto 74.9 % (50-75); Platelet Count 245 X10^3/uL (150-400); Red Blood Cell Count 4.71 X10^6/uL (4.5-5.9); Red Cell Distribution Width 13.5 % (11.6-14.8); White Blood Cell Count 13.2 X10^3/uL (4.5-11.0)
[2020-12-10 11:58] LABS: Alanine Aminotransferase 43 IU/L (<50); Albumin 4.3 g/dL (3.5-5.0); Albumin Globulin Ratio 1.3 (1.0-2.8); Alkaline Phosphatase 83 U/L (38-126); Aspartate Aminotransferase 51 IU/L (17-59); BUN Creatinine Ratio 12.4 (6-22); Bilirubin Total 3.4 mg/dL (0.2-1.3); Blood Urea Nitrogen 22 mg/dL (9-20); Calcium 9.4 mg/dL (8.4-10.2); Carbon Dioxide 31 mmol/L (22-32); Chloride 102 mmol/L (98-107); Estimated Glomerular Filt Rate 39.9 mL/min (>60); Globulin 3.3 g/dL (1.7-4.1); Glucose 109 mg/dL (70-100); HEMOLYSIS < 15 (0-50); Lipase 82 U/L (23-300); Potassium 3.8 mmol/L (3.4-5.1); Sodium 136 mmol/L (137-145); Total Protein 7.6 g/dL (6.3-8.2)
--- NOTE | 2020-12-10 12:18 | ED_ITS ---
HPI - Male Genitourinary <Сергей Castelan PA-C - Last Filed: 12/10/20 14:16> General Chief complaint: Urogenital-Male Stated complaint: possible kidney stone, bad pain Time Seen by Provider: 12/10/20 11:45 Source: patient Mode of arrival: Ambulatory Limitations: no limitations History of Present Illness HPI Narrative: Raghu presents today with chief complaint of left flank pain and blood in his urine that started 4 days ago. He also reports some chills. He reports increased frequency of urination. He has history of kidney stone with previous lithotripsy and states that this feels the same as his last stones. He has slightly decreased urine output and is concerned that he may have an obstruction. He also has history of ulcerative colitis with ileostomy placement. He denies any significant fever, abdominal pain, changes in his bowel movements, shortness of breath, chest pain, decreased exercise capacity, cough, sore throat, pain with urination, or any other acute concerns or complaints at this time. Related Data Home Medications Medication Instructions Recorded Confirmed cholecalciferol (vitamin D3) 25 1,000 unit PO BID cap 10/30/18 04/28/19 mcg (1,000 unit) capsule Previous Rx's Medication Instructions Recorded albuterol sulfate 90 mcg/actuation 2 puff INHALATION Q4-6H PRN #18 11/29/17 aerosol inhaler gram sildenafil 100 mg tablet 100 mg PO DAILY PRN #10 tab 10/02/18 Vitamin B12 1,000 mcg SUBLINGUAL DAILY #90 tab 03/24/19 loperamide 2 mg tablet (Imodium 2 mg PO BID #180 tab 03/24/19 A-D) alendronate 70 mg tablet 70 mg PO QWEEK #12 tab 06/23/19 fluticasone propionate 220 1 puff INHALATION BID #12 gram 08/07/20 mcg/actuation HFA aerosol inhaler sertraline 50 mg tablet 50 mg PO BID #60 tab 09/16/19 ondansetron 4 mg disintegrating 4 mg PO Q6H PRN #14 tab 12/10/20 tablet Allergies Allergy/AdvReac Type Severity Reaction Status Date / Time bupropion AdvReac Severe Hoarseness Verified 12/10/20 10:53 Review of Systems <Сергей Castelan PA-C - Last Filed: 12/10/20 14:16> Review of Systems Narrative: As per HPI Patient History <Сергей Castelan PA-C - Last Filed: 12/10/20 14:16> Medical History (Updated 12/10/20 @ 14:16 by Сергей Castelan PA-C) Actinic keratosis (~04/2017) ADHD (attention deficit hyperactivity disorder) Allergic rhinitis Asthma (2011) Chronic back pain (2001) Colorectal cancer (2011) Crohn's disease (1982) Depression (2009) Kidney stones (2007) Osteopenia (1992) Prolapse of stoma (11/2014) Ulcerative colitis (1982) Surgical History History of partial colectomy (1997) History of resection of small bowel (11/2014) Hx of hernia repair (03/2013) Hx of total colectomy (09/2011) SBO (small bowel obstruction) (10/2011) Family History Father History of heart disease Mother History of lung cancer History of kidney cancer Brain aneurysm Grandfather No problems noted. Grandmother No problems noted. Grandmother No problems noted. Social History Smoking Status: Never smoker second hand exposure: No alcohol intake: current substance use type: does not use Smoking Status: Never smoker alcohol intake frequency: holidays/special occasions only Substance Use Type: does not use Exam <Сергей Castelan PA-C - Last Filed: 12/10/20 14:16> Narrative Exam Narrative: Exam Narrative: Const General: cooperative, healthy appearing, comfortable, no acute distress, well developed and well groomed Nutritional Appearance: average body habitus Orientation: alert and oriented x3 HENMT Head: normal to inspection and atraumatic Ears: hearing grossly normal bilaterally Nose: external nose normal and nares normal Face and sinus: normal facial exam Neck Neck: normal visual inspection and supple Resp Effort & Inspection: normal respiratory effort, able to speak in complete sentences, no audible wheezes, not labored, no nasal flaring and no respiratory distress Neuro General: alert, oriented x3, gait normal, tone normal and moves all extremities Cognition: normal cognition Speech: speech normal Gait: normal gait GI Nondistended, normal bowel sounds, no significant tenderness noted. Ileostomy site appears normal. No CVA tenderness. Psych Appearance: grossly normal and well kempt Mental Status: mental status grossly normal Speech and Movement: speech and movement normal Mood: congruent mood Affect: normal affect Initial Vital Signs Initial Vital Signs: Vital Signs Temperature 97.0 F L 12/10/20 10:50 Pulse Rate 78 12/10/20 10:50 Respiratory Rate 19 12/10/20 10:50 Blood Pressure 126/72 12/10/20 10:50 Pulse Oximetry 96 12/10/20 10:50 <Valencia Molina DO - Last Filed: 12/12/20 15:33> Initial Vital Signs Initial Vital Signs: Vital Signs Temperature 97.0 F L 12/10/20 10:50 Pulse Rate 78 12/10/20 10:50 Respiratory Rate 19 12/10/20 10:50 Blood Pressure 126/72 12/10/20 10:50 Pulse Oximetry 96 12/10/20 10:50 Course <Сергей Castelan PA-C - Last Filed: 12/10/20 14:16> Course Course Narrative: I spoke with Dr. Sidhu office, the patient's urologist. The patient will be scheduled for a follow-up appointment for early next week with Dr. Thea ISABEL. This was relayed to the patient and he verbalized agreement to the plan. Orders Ordered: Discontinued Medications Sodium Chloride (Normal Saline 0.9%) 1,000 mls @ 1,000 mls/hr IV BOLUS ONE Stop: 12/10/20 13:22 Last Infusion: 12/10/20 13:26 Dose: 0 mls/hr Documented by: Admin: 12/10/20 12:27 Dose: 1,000 mls/hr Documented by: ALFONZO Sodium Chloride (Normal Saline 0.9%) 500 mls @ 1,000 mls/hr IV BOLUS ONE Stop: 12/10/20 14:20 Last Infusion: 12/10/20 14:20 Dose: 0 mls/hr Documented by: Admin: 12/10/20 13:57 Dose: 1,000 mls/hr Documented by: ALFONZO Ketorolac Tromethamine (Ketorolac 30 Mg/Ml Vial) 15 mg IV NOW ONE Stop: 12/10/20 11:08 Last Admin: 12/10/20 11:11 Dose: 15 mg Documented by: ALFONZO Vital Signs Vital signs: Vital Signs - 8 hr 12/10/20 10:50 12/10/20 10:52 12/10/20 11:01 Temperature 97.0 F L Pulse Rate 78 76 65 Respiratory Rate 19 Blood Pressure 126/72 126/72 114/62 Pulse Oximetry 96 99 100 12/10/20 11:30 12/10/20 12:00 12/10/20 12:30 Temperature Pulse Rate 63 63 69 Respiratory Rate Blood Pressure 108/62 104/61 111/61 Pulse Oximetry 99 97 98 12/10/20 13:00 12/10/20 13:30 Temperature Pulse Rate 65 60 Respiratory Rate Blood Pressure Pulse Oximetry 99 100 <Valencia Molina, DO - Last Filed: 12/12/20 15:33> Orders Ordered: Discontinued Medications Sodium Chloride (Normal Saline 0.9%) 1,000 mls @ 1,000 mls/hr IV BOLUS ONE Stop: 12/10/20 13:22 Last Infusion: 12/10/20 13:26 Dose: 0 mls/hr Documented by: Admin: 12/10/20 12:27 Dose: 1,000 mls/hr Documented by: CLARISSEOR Sodium Chloride (Normal Saline 0.9%) 500 mls @ 1,000 mls/hr IV BOLUS ONE Stop: 12/10/20 14:20 Last Infusion: 12/10/20 14:20 Dose: 0 mls/hr Documented by: Admin: 12/10/20 13:57 Dose: 1,000 mls/hr Documented by: ALFONZO Ketorolac Tromethamine (Ketorolac 30 Mg/Ml Vial) 15 mg IV NOW ONE Stop: 12/10/20 11:08 Last Admin: 12/10/20 11:11 Dose: 15 mg Documented by: ALFONZO Vital Signs Vital signs: Vital Signs - 8 hr 12/10/20 10:50 12/10/20 10:52 12/10/20 11:01 Temperature 97.0 F L Pulse Rate 78 76 65 Respiratory Rate 19 Blood Pressure 126/72 126/72 114/62 Pulse Oximetry 96 99 100 12/10/20 11:30 12/10/20 12:00 12/10/20 12:30 Temperature Pulse Rate 63 63 69 Respiratory Rate Blood Pressure 108/62 104/61 111/61 Pulse Oximetry 99 97 98 12/10/20 13:00 12/10/20 13:30 Temperature Pulse Rate 65 60 Respiratory Rate Blood Pressure Pulse Oximetry 99 100 MDM - Male Genitourinary <Сергей Castelan PA-C - Last Filed: 12/10/20 14:16> Lab Data Result diagrams: 12/10/20 11:48 12/10/20 11:48 Labs: Lab Results 12/10/20 12/10/20 12/10/20 Range/Units 11:00 11:48 11:48 WBC 13.2 H (4.5-11.0) X10^3/uL RBC 4.71 (4.5-5.9) X10^6/uL Hgb 15.1 (13.5-17.5) g/dL Hct 45.4 (41-53) % MCV 96.4 (80-100) fL MCH 32.0 (26-34) PG MCHC 33.2 (30-36) % RDW 13.5 (11.6-14.8) % Plt Count 245 (150-400) X10^3/uL Neut % (Auto) 74.9 (50-75) % Lymph % (Auto) 10.6 L (25-40) % [place] % (Auto) 12.3 (3-14) % Eos % (Auto) 1.7 L (2-4) % Baso % (Auto) 0.5 (0-2) % Neut # (Auto) 9900 H (3316-8801) /uL Lymph # (Auto) 1400 (1627-8824) /uL [place] # (Auto) 1600 H (0-900) /uL Eos # (Auto) 200 (0-450) /uL Baso # (Auto) 100 (0-100) /uL Sodium 136 L (137-145) mmol/L Potassium 3.8 (3.4-5.1) mmol/L Chloride 102 (98-107) mmol/L Carbon Dioxide 31 (22-32) mmol/L BUN 22 H (9-20) mg/dL Creatinine 1.78 H (0.66-1.25) mg/dL Estimated GFR 39.9 L (>60) mL/min BUN/Creatinine Ratio 12.4 (6-22) Glucose 109 H (70-100) mg/dL Calcium 9.4 (8.4-10.2) mg/dL Total Bilirubin 3.4 H (0.2-1.3) mg/dL AST 51 (17-59) IU/L ALT 43 (<50) IU/L Alkaline Phosphatase 83 (38-126) U/L Total Protein 7.6 (6.3-8.2) g/dL Albumin 4.3 (3.5-5.0) g/dL Globulin 3.3 (1.7-4.1) g/dL Albumin/Globulin Ratio 1.3 (1.0-2.8) Lipase 82 (23-300) U/L Urine RBC 1-5/hpf (0-5/HPF) Urine WBC 0-1/hpf (0-5/HPF) Urine Bacteria None seen (None) Ur Culture Indicated? Cult not indicated Urine Dip Bedside Urine Glucose Negative Bedside Urine Bilirubin - Negative Bedside Urine Ketone - Negative Urine Specific [place] 1.020 Bedside Urine Occult Blood + Bedside Urine pH 6.0 Bedside Urine Protein - Negative Bedside Urine Urobilinogen - Negative Bedside Urine Nitrite - Negative Bedside Urine Leukocytes - Negative Esterase MDM Narrative Medical decision making narrative: Patient has evidence PERLA and an obstructing 6 mm kidney stone in left distal ureter. He has a slight bump in his white blood cell count but his urinalysis does not show any significant signs of infection. He is able to have close follow-up with his urologist and has had multiple kidney stones in the past. We discussed discharging home and patient is comfortable with that plan at this time. He has pain medications already at home that he can take. We will do antinausea medications to make sure that he is able to stay well-hydrated and take his medications to help pain management. Strict ER return precautions were discussed with the patient. Patient verbalizes understanding and agrees to plan and has no further concerns at this time. Thank you A [id number] system was used with the dictation of this note. Please disregard any spelling or grammatical errors. <Valencia Molina, - Last Filed: 12/12/20 15:33> Lab Data Labs: Lab Results 12/10/20 12/10/20 12/10/20 Range/Units 11:00 11:48 11:48 WBC 13.2 H (4.5-11.0) X10^3/uL RBC 4.71 (4.5-5.9) X10^6/uL Hgb 15.1 (13.5-17.5) g/dL Hct 45.4 (41-53) % MCV 96.4 (80-100) fL MCH 32.0 (26-34) PG MCHC 33.2 (30-36) % RDW 13.5 (11.6-14.8) % Plt Count 245 (150-400) X10^3/uL Neut % (Auto) 74.9 (50-75) % Lymph % (Auto) 10.6 L (25-40) % [place] % (Auto) 12.3 (3-14) % Eos % (Auto) 1.7 L (2-4) % Baso % (Auto) 0.5 (0-2) % Neut # (Auto) 9900 H (4157-2621) /uL Lymph # (Auto) 1400 (2773-5044) /uL [place] # (Auto) 1600 H (0-900) /uL Eos # (Auto) 200 (0-450) /uL Baso # (Auto) 100 (0-100) /uL Sodium 136 L (137-145) mmol/L Potassium 3.8 (3.4-5.1) mmol/L Chloride 102 (98-107) mmol/L Carbon Dioxide 31 (22-32) mmol/L BUN 22 H (9-20) mg/dL Creatinine 1.78 H (0.66-1.25) mg/dL Estimated GFR 39.9 L (>60) mL/min BUN/Creatinine Ratio 12.4 (6-22) Glucose 109 H (70-100) mg/dL Calcium 9.4 (8.4-10.2) mg/dL Total Bilirubin 3.4 H (0.2-1.3) mg/dL AST 51 (17-59) IU/L ALT 43 (<50) IU/L Alkaline Phosphatase 83 (38-126) U/L Total Protein 7.6 (6.3-8.2) g/dL Albumin 4.3 (3.5-5.0) g/dL Globulin 3.3 (1.7-4.1) g/dL Albumin/Globulin Ratio 1.3 (1.0-2.8) Lipase 82 (23-300) U/L Urine RBC 1-5/hpf (0-5/HPF) Urine WBC 0-1/hpf (0-5/HPF) Urine Bacteria None seen (None) Ur Culture Indicated? Cult not indicated Urine Dip Bedside Urine Glucose Negative Bedside Urine Bilirubin - Negative Bedside Urine Ketone - Negative Urine Specific [place] 1.020 Bedside Urine Occult Blood + Bedside Urine pH 6.0 Bedside Urine Protein - Negative Bedside Urine Urobilinogen - Negative Bedside Urine Nitrite - Negative Bedside Urine Leukocytes - Negative Esterase Discharge Plan Departure Patient Disposition: Home Clinical Impression: PERLA (acute kidney injury), Hydronephrosis with obstructing calculus Instructions: DI for Kidney Stones Activity Restrictions/Additional Instructions: It was very nice to meet you this afternoon. Please follow-up with your urologist early next week. Recommend drinking lots of fluids and using the antinausea medication to stay well hydrated. Use pain medications as needed. I f you experience fever, worsening pain, decreased urine output return immediately to the emergency department for re-evaluation. Thank you Сергей Castelan PA-C Prescriptions: New ondansetron 4 mg tablet,disintegrating 4 mg PO Q6H PRN (Reason: nausea and vomiting) Qty: 14 RF: 0 No Action albuterol sulfate 90 mcg/actuation HFA aerosol inhaler 2 puff INHALATION Q4-6H PRN (Reason: shortness of breath) Qty: 18 RF: 6 sildenafil 100 mg tablet 100 mg PO DAILY PRN (Reason: sexual activity) Qty: 10 RF: 3 alendronate 70 mg tablet 70 mg PO QWEEK Qty: 12 RF: 1 fluticasone propionate 220 mcg/actuation HFA aerosol inhaler 1 puff INHALATION BID Qty: 12 RF: 3 sertraline 50 mg tablet 50 mg PO BID Qty: 60 RF: 3 cholecalciferol (vitamin D3) 1,000 unit capsule 1,000 unit PO BID RF: 0 loperamide [Imodium A-D] 2 mg tablet 2 mg PO BID Qty: 180 RF: 3 Vitamin B12 1,000 mcg sublingual DAILY Qty: 90 RF: 3 Referrals: Zeynep Yadav PA-C [Primary Care Provider] - <Valencia Molina DO - Last Filed: 12/12/20 15:33> Cosign ED Attending Cosjonoature Attestation: I was immediately available in the depar tment for consultation. Documentation has been reviewed.
--- NOTE | 2020-12-10 12:23 | DI.CT.S_ITS ---
PROCEDURE: CT KIDNEY URETER BLADDER (KUB) INDICATIONS: left flank pain, PERLA, hx of stones TECHNIQUE: Axial sections were acquired from the lung bases to the pubic symphysis. Coronal and sagittal reformats were performed. For radiation dose reduction, the following was used: automated exposure control, adjustment of mA and/or kV according to patient size. COMPARISON: [facility], CT, CT ABDOMEN PELVIS WO/W CON, 11/04/2018, 6:57. FINDINGS: Image quality: Excellent. Lung bases: Mild dependent atelectasis. No pleural effusion. Heart: No significant findings. Small hiatal hernia. URINARY: Right Kidney: Nonobstructing calculus measuring 0.2 cm. No hydronephrosis. Simple appearing cyst at the superior pole measuring 4 cm. Right Ureter: No hydroureter. Left Kidney: Moderate hydroureteronephrosis. Nonobstructing calculus measuring 0.2 cm. Mild perinephric stranding. Left Ureter: Obstructing calculus in the distal left ureter measuring 0.6 x 0.4 cm, (2/69). The CT from 2019 demonstrated a stone in the proximal ureter. Bladder: Normal wall thickness. No stones. ABDOMEN: Liver: Unremarkable. Gallbladder: No calcified gallstones. Biliary ducts: Unremarkable. Pancreas: Unremarkable. Spleen: Unremarkable. Adrenal Glands: Unremarkable. Stomach and Bowel: Ostomy at the right abdomen is similar to the prior exam. There is a small peristomal hernia. No fluid collection. There is no bowel obstruction. Several areas of fecalization within the small bowel are again seen. Anastomosis in the right lower quadrant. Colostomy. Peritoneum: No abnormal intraperitoneal fluid. No free air. Ventral Wall: No hernia. Abdominal Nodes: No enlarged retroperitoneal or mesenteric lymph nodes. Vessels: Aorta and inferior vena cava are normal in size. PELVIS: Pelvic Organs: Unremarkable. Pelvic Nodes: Unremarkable. Miscellaneous: Fat containing inguinal hernias. Bones: No compression fracture. Mild degenerative change. IMPRESSION: 1. Obstructing calculus in the distal left ureter measuring 0.6 x 0.4 cm. Moderate left hydroureteronephrosis. 2. Additional nonobstructing kidney stones bilaterally. 3. Colectomy. Ostomy in the right abdomen. No small bowel obstruction demonstrated. Dictated by: James Schaefer M.D. on 12/10/2020 at 12:01 Approved by: James Schaefer M.D. on 12/10/2020 at 12:12
[2020-12-10] MEDS: SODIUM CHLORIDE 0.9% 1,000 ML 1000 ML IV (12:27)
[2020-12-10] MEDS: SODIUM CHLORIDE 0.9% 500 ML 1000 ML IV (13:57)
== END 2020-12-10 14:26 | disposition home or self-care (01) ==
PROVIDERS: Emergency Medicine; Emergency Provider Physician Assistant; PCP Physician Assistant
DX: N17.9 Acute kidney failure, unspecified (principal); N13.2 Hydronephrosis with renal and ureteral calculous obstruction
CPT/HCPCS: 36415; 74176; 80053; 81003; 81015; 83690; 85025; 96361; 96374; 99284; J1885; Q9967

== ENCOUNTER → 2023-06-20 09:48 | Outpatient (CLI) | payer OTHER, MEDICARE, SELFPAY ==
--- NOTE | 2023-06-20 09:52 | DI.RAD.S_ITS ---
PROCEDURE: FL BARIUM SWALLOW W SPEECH INDICATIONS: COUGH WITH EATING COMPARISON: None. TECHNIQUE: Examination was conducted in conjunction with speech pathology per standard protocol. In the lateral projection, filming was performed of the patient swallowing. AP projection filming may also be performed with patient swallowing. COMPARISON: FINDINGS: Function: The oral preparatory phase appears normal, with proper containment. The subsequent oral propulsive phase, pharyngeal phase, and esophageal phase of swallowing also appear normal with all proffered substances. No aspiration. Mild penetration. No pathologic vallecular pooling. Solid barium tablet demonstrate mild delay within the mid esophagus before passing into the stomach. Morphology: No cricopharyngeal bar is identified. No cervical esophageal webs. No Zenker's diverticulum. No strictures. IMPRESSION: Mild penetration without aspiration. Dictated by: Yumiko Kim M.D. on 06/20/2023 at 16:13 Approved by: Yumiko Kim M.D. on 06/20/2023 at 16:14
--- NOTE | 2023-06-20 14:27 | ST.SWALLOW ---
Visit Care Team Role Provider Type Shari Mccabe PA-C Attending Provider Non-Staff Primary Care Provider Referring Provider Specialty: Medical Address: [address] [place] [address], [id number] Email: Modified Barium Swallow Study MANAGER TELEMETRY Modified Barium Swallow Study Start: 06/20/23 13:33 Freq: Status: Active Protocol: Document 06/20/23 13:34 LNK (Rec: 06/20/23 14:26 LNK [id number]) Modified Barium Swallow Study Total Time Visit Start Time 10:00 Visit Stop Time 10:40 Total Visit Minutes 40 Referral Referring Physician MAAME Lobato Reason for Referral dysphagia Setting Setting Outpatient Care Patient Information Identification Type Name,Date of Patient History Pt was seen for Modified Barium Swallow Study secondary to c/o recurrent cough/choke. Pt reports frequent coughing during meals with solids and liquids as well as a sense of globus. He also noted that he often wakes up in the middle of the night with a cough. Pt described his coughing as very hard, to the point of not being able to breath. Pt suspects he may have reflux, but that has not been formally diagnosed. Pt reported a PMH that includes Shatzky's ring (remote) frequent upper GI issues, difficulty with NG tube placement and illiostomy. Subjective Observations Pt was seated in the fluoroscopy chair with instructions and procedures described for him. He indicated that he understood and agreed to continue. Patient Positioning Position View Lat-A/P Imaging Lateral View Textures Administered Trials Presented Thin Liquid via Spoon (IDDSI 0 ),Thin Liquid via Cup (IDDSI 0 ),Extremely Thick Liquid via Spoon (IDDSI 4),Regular (IDDSI 7) Barium Tablet Yes The IDDSI Framework Protocol: IDDSI.1 Oral Impairment Source: The Modified Barium Swallow Impairment Profile (MBSImP??) Lip Closure No labial escape Tongue Control During Bolus Hold Cohesive bolus between tongue to palatal seal Bolus Preparation/Mastication Slow prolonged chewing/mashing with complete re-collection Bolus Transport/Lingual Motion Brisk tongue motion Oral Residue Complete oral clearance,Trace residue lining oral structures Location Tongue Initiation of Pharyngeal Swallow Bolus head in valleculae Additional Oral Impairment Observations OME and DKS were observed to be WNL. Dentition was natural and in good hygiene. Mastication was adequate with rotary chew pattern. Bolus formation, control and AP transition were observed to be WFL. Pharyngeal Impairment Source: The Modified Barium Swallow Impairment Profile (MBSImP??) Soft Palate Elevation No bolus between soft palate & pharyngeal wall Laryngeal Elevation Min.sup.move. thyroid cart. w/ min.approx.arytenoids to epiglot.petiole Anterior Hyoid Excursion Complete anterior movement Epiglottic Movement Complete inversion Laryngeal Vestibular Closure Complete; no air/contrast in laryngeal vestibule Pharyngeal Stripping Wave Present - complete Pharyngoesophageal Segment Opening Complete distention & complete duration; no obstruction of flow Tongue Base Retraction No contrast between tongue base & posterior pharyngeal wall Pharyngeal Residue Trace residue within/on pharyngeal structures Location Diffuse (>3 areas) Additional Pharyngeal Impairment Pharyngeal phase of swallowing Observations observed to be WFL. Reduced laryngeal elevation and good movement of the hyoid observed with full epiglottic inversion. Flash penetration noted x2 (WNL). Adequate stripping of the posterior pharyngeal wall and trace residual pooling in the valeculla. No laryngeal penetration or tracheal aspiration observed. Proximal to the PES there was significant narrowing of the esophagus near C6-C& during active swallowing. Pt reports PMH of Shatzki's ring, although there was not a formal assessment as other medical issues arose (per patient. A GI referral is recommended for further evaluation of possible GERD and to determine the overall status of the esophagus. [ End ] A/P View Textures Administered Trials Presented Thin Liquid via Cup (IDDSI 0) The IDDSI Framework Protocol: IDDSI.1 A/P View Observations Pharyngeal Contraction Complete Esophageal Clearance Upright Position Complete clearance; esophageal coating Vocal Fold Function Good Esophageal Function WFL Clinical Impressions Dysphagia Type WNL Findings The pt's oropharyngeal swallow appears to be WNL. Esophageal narrowing near C6-C7 was noted during active swallows. Pt suspicious of GERG. A GI referral is recommended for further evaluation of possible GERD and to determine the overall status of the esophagus. Recommendations Diet Comments No change in diet recommended at this time; GERD diet/ precautions discussed Treatment Plan Recommended Referrals GI Consult Additional Strategies Recommended Raise HOB to allow for gravity assist in esophageal clearance
== END ==
LOC: RAD 09:51
PROVIDERS: PCP Physician Assistant; Referring Provider Physician Assistant; Visit Provider Physician Assistant
DX: R05.9 Cough, unspecified (principal)
CPT/HCPCS: 74230; 92611